=== PATIENT | male | born 1960 | race Caucasian/White ===

== ENCOUNTER → 2017-10-21 | Outpatient (CLI) | payer BC ==
--- NOTE | 2017-10-21 10:57 | Diagnostic Imaging Report ---
History: Neck and right shoulder pain Comparison studies: None Technique: Sagittal T1, T2 and IR, axial T2 and axial gradient echo Intravenous contrast: None Findings: Alignment: Straightening of the cervical spine lordosis No scoliosis. Thickening of the posteriorly to the ligament from C6 superior endplate through C5 inferior endplate Cervicomedullary junction: No abnormalities. Patent foramen magnum. Soft tissues: No T2 hyperintense inflammatory changes. Spinal cord: Increased T2 signal at the L4-5 with associated severe canal stenosis Vertebrae: Edema signal at C4-5. No fractures, infection or neoplasm. Degenerative changes: C2-C3: Small central disc osteophyte complex with patent canal and foramina C3-C4: Asymmetric left disc osteophyte complex bilateral uncinate process hypertrophy and left facet hypertrophy results in moderate canal stenosis and moderate left foraminal narrowing C4-C5: Fluid intensity signal within the intervertebral disc and endplate edema. Posterior diffuse disc osteophyte complex, bilateral uncinate process hypertrophy, ligamentum flavum thickening and facet hypertrophy results in severe canal stenosis and severe bilateral foraminal narrowing C5-C6: Diffuse disc osteophyte complex and left uncinate process hypertrophy results in mild canal stenosis and mild left foraminal narrowing C6-C7: Patent canal and foramina C7-T1: Patent canal and foramina IMPRESSION: 1. Severe degenerative canal stenosis C4-C5 with signal intensity changes at the cervical spinal cord, this could be related to a combination of myelomalacia with superimposed compressive myelitis. 2. Endplate edema with mild fluid intensity signal intensity signal at C4-C5 intervertebral space, this could be related to Modic type I changes, early discitis cannot be entirely ruled out. 3. Moderate degenerative canal stenosis and moderate left foraminal narrowing at C4-C5. Other degenerative changes as described above. Signed by: DR Washington Wall M.D. on 10/21/2017 11:40 AM
--- NOTE | 2017-10-21 13:46 | Diagnostic Imaging Report ---
TECHNIQUE: Magnetic resonance imaging of the right SHOULDER was performed WITHOUT injected contrast. COMPARISON: None available. HISTORY: shoulder pain FINDINGS: MUSCLES AND TENDONS: Rotator Cuff: Tendons: Low-grade partial thickness articular sided tearing of the supraspinatus and infraspinatus tendon for example coronal image 14 Muscles: No focal muscle atrophy. Biceps Tendon: The long head of the biceps tendon is intact and within the intertubercular groove. GLENOHUMERAL JOINT: Glenoid Labrum: No displaced tear. Articular Cartilage: No focal defect. AC JOINT AND ACROMION: Mild hypertrophic degenerative changes of the acromioclavicular joint. The acromion is unremarkable. BONE: No focal or infiltrative bone marrow replacing abnormality. No acute fracture. SOFT TISSUES: Otherwise, the soft tissues appear unremarkable. IMPRESSION: Supraspinatus and infraspinatus low-grade partial thickness articular sided tearing. No full-thickness tear, retraction, or atrophy. Signed by: Dr. Jarret Packer M.D. on 10/21/2017 1:42 PM
== END ==
LOC: MRI 07:18
PROVIDERS: ATTEND Family Medicine
DX: M25.511 Pain in right shoulder (principal); M54.12 Radiculopathy, cervical region
CPT/HCPCS: 72141

== ENCOUNTER 2017-10-29 08:06 | Observation (INO) | payer BC ==
[2017-10-28 12:56] LABS: BASOPHILS # (AUTO) 0.1 (0.0-0.1); BASOPHILS % 0.8 % (0.0-1.0); EOSINOPHILS # (AUTO) 0.1 (0.0-0.4); EOSINOPHILS % 1.3 % (0.0-6.0); HEMATOCRIT 47.2 % (38.2-49.6); HEMOGLOBIN 16.1 g/dL (14.0-18.0); LYMPHOCYTES % 21.6 % (18.0-39.1); MEAN CORPUSCULAR HGB CONC 34.1 g/dL (31-35); MEAN CORPUSCULAR VOLUME 90.8 fL (81-99); MONOCYTES # (AUTO) 0.7 (0.2-0.8); MONOCYTES % 7.5 % (4.4-11.3); NEUTROPHILS # (AUTO) 6.2 (2.1-6.9); NEUTROPHILS % 67.9 % (38.7-80.0); PLATELET COUNT 182 x10e3/uL (140-360); RED CELL DISTRIBUTION WIDTH 13.3 % (11.7-14.4)
[2017-10-28 13:09] LABS: INR 1.02; PROTHROMBIN TIME 12.6 seconds (11.9-14.5)
[2017-10-28 13:10] LABS: PARTIAL THROMBOPLASTIN TIME 27.1 seconds (23.8-35.5)
[2017-10-28 13:14] LABS: ANION GAP 18.3 mmol/L (8-16); BLOOD UREA NITROGEN 20 mg/dL (7-26); BUN/CREATININE RATIO 27 (6-25); CALCIUM 10.3 mg/dL (8.4-10.2); CARBON DIOXIDE 24 mmol/L (22-29); CHLORIDE 106 mmol/L (98-107); CREATININE, SERUM 0.73 mg/dL (0.72-1.25); EST GLOMERULAR FILTRATION RATE > 60 ML/MIN (60-); GLUCOSE 117 mg/dL (74-118); POTASSIUM 4.3 mmol/L (3.5-5.1); SODIUM 144 mmol/L (136-145)
--- NOTE | 2017-10-28 14:34 | Diagnostic Imaging Report ---
PROCEDURE: Frontal and lateral views of the chest. COMPARISON: None. INDICATIONS: Pre operative chest x-ray for c-spine surgery FINDINGS: Lines/tubes: None. Lungs: The lungs are well inflated and clear. There is no evidence of pneumonia or pulmonary edema. Pleura: There is no pleural effusion or pneumothorax. Heart and mediastinum: The heart and the mediastinum are normal. Bones: No acute bony abnormality. Degenerative changes of the thoracic spine. IMPRESSION: No acute radiographic abnormality. Dictated by: Young Roldan M.D. on 10/28/2017 at 14:35 Electronically approved by: Young Roldan M.D. on 10/28/2017 at 14:35
[2017-10-29] VITALS (7 sets, daily range): BP systolic 140–150; BP diastolic 68–80
[~2017-10-29] VITALS: Ht 165.1 cm; Wt 93.0 kg
[~2017-10-29 08:06] MED LIST: BACITRACIN 50,000 UNIT VIAL ONE; BUPIVACAINE 0.5%/EPI 30 ML SDV INJ ONE; CEFAZOLIN SOD 1 GM VIAL ONE; CRESTOR10 MG PO; GELATIN SPONGE SZ 100 ONE; IBUPROFEN400 MG PO; JANUMET XR 1001 EACH PO; JARDIANCE PO; METFORMIN HCL500 M2 PO; THROMBIN FOR SOLN 5,000 UNIT VIAL ONE
--- OUTSIDE RECORDS SUMMARY | 2017-10-29 08:08 | XMS REPORT | Clinical Summary ---
Author Author [facility] Address Unknown Phone Unavailable Care Team Providers Care Trawl Net Maker Name Role Phone Ksenia Vaughan MD PCP Allergies No Known Allergies Current Medications Prescription Sig. Disp. Refills Start End Date Status Date chlorhexidine (PERIDEX) RINSE MOUTH DIRECTED 3 10/10/19 Active 0.12 % solution 16 aspirin (ECOTRIN) 81 MG Take 81 mg by mouth Active enteric coated tablet daily. Active Problems Not on file Family History Medical History Relation Name Comments Pancreatic cancer Brother Emphysema Father Asthma Mother Diabetes Mother Relation Name Status Comments Brother Brother Alive Father Mother Alive Social History Tobacco Use Types Packs/Day Years Used Date Current Every Day Smoker 2 Tobacco Cessation: Ready to Quit: Yes Alcohol Use Drinks/Week oz/Week Comments Yes 14 Shots of 8.4 liquor Sex Assigned at Date Recorded Not on file Last Filed Vital Signs Not on file Plan of Treatment Health Maintenance Due Date Last Done Comments COLONOSCOPY 2011 SHINGRIX VACCINE (#1) 2011 INFLUENZA VACCINE 02/03/2018 06/15/2014 Results Not on fileafter 10/28/2016 Insurance Payer Benefit Subscriber ID Type Phone Address Plan / Group CIGNA CIGNA PPO xxxxxxxxxxx PPO
--- OUTSIDE RECORDS SUMMARY | 2017-10-29 08:08 | XMS REPORT ---
Author Author [facility] Address Unknown Phone Unavailable Care Team Providers Care Pediatric Cns Name Role Phone GREER KEENAN Unavailable Unavailable AQUILINO SINGH Unavailable Unavailable Problems This patient has no known problems. Allergies, Adverse Reactions, Alerts This patient has no known allergies or adverse reactions. Medications This patient has no known medications. Results Test Description Test Time Test Comments Text Results Atomic Results Result Comments CHEST 2 VIEWS [place] [address] Patient Name: SAYRA FERRER MR #: [id number] : 1960 Age/Sex: 57/M Req #: [id number] Adm Physician: Ordered by: GREER KEENAN MD Report #: [id number] Location: OR Room/Bed: Procedure: [id number] DX/CHEST 2 VIEWS Exam Date: Exam Time: REPORT STATUS: Signed PROCEDURE: Frontal and lateral views of the chest. COMPARISON: None. INDICATIONS: Pre operative chest x-ray for c- spine surgery FINDINGS: Lines/tubes: None. Lungs: The lungs are well inflated and clear. There is no evidence of pneumonia or pulmonary edema. Pleura: There is no pleural effusion or pneumothorax. Heart and mediastinum: The heart and the mediastinum are normal. Bones: No acute bony abnormality. Degenerative changes of the thoracic spine. IMPRESSION: No acute radiographic abnormality. Dictated by: Anshu Colon M.D. on 10/28/2017 at 14:35 Electronically approved by: Anshu Colon M.D. on 10/28/2017 at 14:35 Dictated By: ANSHU COLON MD 34 Transcribed By: NICKIE on 10/28/171434 COPY TO: GREER KEENAN MD MRI SPINE CERVICAL WO [place] [address] Patient Name: SAYRA FERRER MR #: [id number] : 1960 Age/Sex: 57/M Req #: [id number] Adm Physician: Ordered by: AQUILINO SINGH DO Report #: [id number] Location: MRI Room/Bed: Procedure: [id number] MRI/MRI SPINE CERVICAL WO Exam Date: Exam Time : REPORT STATUS: Signed History: Neck and right shoulder pain Comparison studies: None Technique: Sagittal T1, T2 and IR, axial T2 and axial gradient echo Intravenous contrast: None Findings: Alignment: Straightening of the cervical spine lordosis No scoliosis. Thickening of the posteriorly to the ligament from C6 superior endplate through C5 inferior endplate Cervicomedullary junction: No abnormalities. Patent foramen magnum. Soft tissues: No T2 hyperintense inflammatory changes. Spinal cord: Increased T2 signal at the L4-5 with associated severe canal stenosis Vertebrae: Edema signal at C4-5. No fractures, infection or neoplasm. Degenerative changes: C2-C3: Small central disc osteophyte complex with patent canal and foramina C3-C4: Asymmetric left disc osteophyte complex bilateral uncinate process hypertrophy and left facet hypertrophy results in moderate canal stenosis and moderate left foraminal narrowing C4-C5: Fluid intensity signal within the intervertebral disc and endplate edema. Posterior diffuse disc osteophyte complex, bilateral uncinate process hypertrophy, ligamentum flavum thickening and facet hypertrophy results in severe canal stenosis and severe bilateral foraminal narrowing C5-C6: Diffuse disc osteophyte complex and left uncinate process hypertrophy results in mild canal stenosis and mild left foraminal narrowing C6-C7: Patent canal and foramina C7-T1: Patent canal and foramina IMPRESSION: 1. Severe degenerative canal stenosis C4-C5 with signal intensity changes at the cervical spinal cord, this could be related to a combination of myelomalacia with superimposed compressive myelitis. 2. Endplate edema with mild fluid intensity signal intensity signal at C4-C5 intervertebral space, this could be related to Modic type I changes, early discitis cannot be entirely ruled out. 3. Moderate degenerative canal stenosis and moderate left foraminal narrowing at C4-C5. Other degenerative changes as described above. Signed by: DR Washington Wall M.D. on 10/21/2017 11:40 AM Dictated By: WASHINGTON TATE MD 1140 Transcribed By : SHILPI on 10/21/17 1140 COPY TO: AQUILINO SINGH DO MRI SHOULDER RIGHT WO [place] [address] Patient Name: SAYRA FERRER MR #: [id number] : 1960 Age/Sex: 57/M Req #: [id number] Adm Physician: Ordered by: AQUILINO SINGH DO Report #: [id number] Location: MRI Room/Bed: Procedure: [id number] MRI/MRI SHOULDER RIGHT WO Exam Date: Exam Time : REPORT STATUS: Signed TECHNIQUE: Magnetic resonance imaging of the right SHOULDER was performed WITHOUT injected contrast. COMPARISON: None available. HISTORY: shoulder pain FINDINGS: MUSCLES AND TENDONS: Rotator Cuff: Tendons: Low-grade partial thickness articular sided tearing of the supraspinatus and infraspinatus tendon for example coronal image 14 Muscles: No focal muscle atrophy. Biceps Tendon: The long head of the biceps tendon is intact and within the intertubercular groove. GLENOHUMERAL JOINT: Glenoid Labrum: No displaced tear. Articular Cartilage: No focal defect. AC JOINT AND ACROMION: Mild hypertrophic degenerative changes of the acromioclavicular joint. The acromion is unremarkable. BONE: No focal or infiltrative bone marrow replacing abnormality. No acute fracture. SOFT TISSUES: Otherwise, the soft tissues appear unremarkable. IMPRESSION: Supraspinatus and infraspinatus low- grade partial thickness articular sided tearing. No full-thickness tear, retraction, or atrophy. Signed by: Dr. Emeka Aldridge M.D. on 10/21/2017 1: 42 PM Dictated By: EMEKA ALDRIDGE MD 1342 Transcribed By: SHILPI on 10/21/17 1342 COPY TO: AQUILINO SINGH DO
[2017-10-29] MEDS ORDERED: CEPACOL SORE THROAT LOZENGES PO PRN (11:30)
[2017-10-29] MEDS ORDERED: ZOLPIDEM TARTRATE 5 MG TAB PO PRN (11:30)
[2017-10-29] MEDS ORDERED: ONDANSETRON HCL INJ 2 MG/ML VIAL IV PRN (11:30)
[2017-10-29] MEDS ORDERED: MAGNESIUM/ALUMINUM/SIMETHICONE 30 ML UDC PO PRN (11:30)
[2017-10-29] MEDS ORDERED: MORPHINE SULFATE 5 MG/ML VIAL IM PRN (11:30)
[2017-10-29] MEDS: LACTATED RINGER'S 1,000 ML IV SCH ×2 (11:30→19:04)
[2017-10-29] MEDS ORDERED: PROMETHAZINE HCL (IM) 25 MG/ML VIAL IM PRN (11:30)
[2017-10-29] MEDS ORDERED: HYDROMORPHONE 2MG/ML INJ IV PRN (11:30)
[2017-10-29] MEDS ORDERED: ACETAMINOPHEN 325 MG TAB PO PRN (11:30)
[2017-10-29] MEDS ORDERED: CARISOPRODOL 350 MG TAB PO PRN (11:30)
[2017-10-29] MEDS ORDERED: MORPHINE SULFATE 2 MG/ML SYR ONE (12:02)
[2017-10-29] MEDS ORDERED: FENTANYL CITRATE/PF 100MCG/2 ML INJ ONE ×2 (12:15→17:34)
--- OUTSIDE RECORDS SUMMARY | 2017-10-29 13:06 | XMS REPORT | Clinical Summary ---
Author Author [facility] Address Unknown Phone Unavailable Care Team Providers Care Diamond Expert Name Role Phone Ksenia Vaughan MD PCP [...]
[2017-10-29] MEDS: OXYCODONE/ACETAMINOPHEN 5-325 1 EACH TABLET PO PRN ×2 (13:55→19:24)
[2017-10-29] MEDS ORDERED: CEFAZOLIN SOD 1 GM/NS 50ML 50 ML IV SCH (14:00)
--- NOTE | 2017-10-29 14:01 | Operative Report ---
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 PROCEDURES 1. C4-5 anterior cervical diskectomy, microsurgical osteophyte resection and allograft fusion, 82769. 2. Preparation of [employer] cortical cancellous allograft, 51153. 3. C4-5 anterior cervical plate and screw fixation with Synthes ZPN plate, 93553. ANESTHESIA: General. INDICATIONS: The patient is a man who presents with C4-5 chronic disk herniation and spondylosis with myelopathy and myelomalacia. He was taken to the operating room for C4-5 anterior cervical decompression and fusion. PROCEDURE: After induction of general anesthesia, the patient was placed on the operating table in supine position. The right side of the neck was prepped and draped in sterile fashion. The fluoroscopic C-arm was positioned in cross-table lateral orientation. A transverse incision was created on the right side of the neck superimposed on the C4-5 disk as determined by fluoroscopy. The platysma was divided in line with the incision. A subplatysmal dissection was carried out. An avascular plane of dissection was developed medial to the sternocleidomastoid muscle and was followed medial to the carotid sheath to the anterior border of the cervical spine. The deep cervical fascia was opened. The esophagus was retracted to the left. The attachments of the longus coli muscles to the anterolateral aspects of the vertebral bodies of C4 and C5 were divided. The anterior longitudinal ligament was resected. [place] posts were inserted into C4 and C5. The [place] distractor was used to distract the disk space. The anterior annulus of the disk was incised a #11 blade. The contents of the disk were thoroughly evacuated with angled curets and pituitary rongeurs. The posterior osteophytes were meticulously drilled with a 2-mm cutting bur on a high-speed drill until they were completely removed. The posterior annulus of the disk, chronically herniated disk material and the posterior longitudinal ligament were resected layer by layer until the dura was fully exposed and decompressed. The medial aspects of the uncinate processes were resected bilaterally to further expose and decompress the origins of the corresponding nerve roots. After satisfactory decompression had been achieved, the endplates were prepared for fusion. The disk space was sized and found to be 8 mm in height. A piece of MTF cortical cancellous allograft measuring 8 mm was selected and prepared in saline and loaded onto a Synthes ZPN plate. The construct was then inserted into the disk space under distraction and fluoroscopic guidance and tamped in place until the anterior margin of the plate was flush with anterior margin of the vertebral bodies. The plate was then screwed to the endplates of C4 and C5 with 2 pairs of 14-mm screws. All screws were locked. An excellent construct was obtained. The wound was copiously irrigated with Bacitracin solution. Meticulous hemostasis was secured. Retractor was removed. The platysma was closed with 3-0 Vicryl sutures. The skin was closed with 4-0 Monocryl sutures in a subcuticular fashion. Steri-Strips and dressing were applied. The patient was awakened, extubated and taken to the postanesthesia care unit in stable condition. No intraoperative complications were encountered. Estimated blood loss was 10 mL. Job#: [id number]
[2017-10-29] MEDS ORDERED: METFORMIN HCL 500 MG TAB CR PO SCH (17:00)
[2017-10-29] MEDS ORDERED: ONDANSETRON HCL INJ 2 MG/ML VIAL ONE (17:19)
[2017-10-29] MEDS ORDERED: DEXAMETHASONE SOD PHOS INJ 4 MG/ML VIAL ONE (17:19)
[2017-10-29] MEDS ORDERED: ACETAMINOPHEN 1000 MG/100 ML IV ONE (17:19)
[2017-10-29] MEDS ORDERED: EPHEDRINE SULFATE INJ 50 MG/10 ML SYR ONE (17:19)
[2017-10-29] MEDS ORDERED: ROCURONIUM BROMIDE 10 MG/ML 5ML VIAL ONE (17:19)
[2017-10-29] MEDS ORDERED: LIDOCAINE HCL 2% LOCAL INJ 5 ML SDV VIAL INJ ONE (17:19)
[2017-10-29] MEDS ORDERED: PROPOFOL IV EMULSION 10 MG/ML 20 ML VIAL ONE (17:19)
[2017-10-29] MEDS ORDERED: LIDOCAINE HCL 2% JELLY 5 ML TUBE ONE (17:19)
[2017-10-29] MEDS ORDERED: SEVOFLURANE INHAL SOLN 250 ML PEN BTL ONE (17:19)
[2017-10-29] MEDS ORDERED: MIDAZOLAM HCL 2 MG/2 ML VIAL ONE (17:34)
[2017-10-29] MEDS: CEFAZOLIN SOD 1 GM VIAL IV SCH (17:34)
[2017-10-29] MEDS: SIMVASTATIN 20 MG TAB PO SCH ×2 (20:10→20:36)
[2017-10-30 00:17] VITALS: BP 159/81
[2017-10-30] MEDS: CEFAZOLIN SOD 1 GM VIAL IV SCH (01:02)
[2017-10-30 04:00] VITALS: BP 154/83
[2017-10-30] MEDS: OXYCODONE/ACETAMINOPHEN 5-325 1 EACH TABLET PO PRN (04:15)
--- NOTE | 2017-10-30 07:11 | Diagnostic Imaging Report ---
C-SPINE 2 VIEWS AP LATERAL HISTORY: Cervical spinal fusion COMPARISON: None FINDINGS: Bones: No displaced fracture. Osseous alignment is within normal limits. Patient is status post anterior fusion of C4-C5 with intervertebral disc spacer and fixation screws Joints: The joint spaces are well-maintained. Soft tissues: Minimal soft tissue emphysema in the precervical/retropharyngeal space. IMPRESSION: Postsurgical changes of cervical spine consistent with anterior fusion of C4-5. Signed by: Dr. Cholo Becerra M.D. on 10/30/2017 7:07 AM
[2017-10-30 07:56] VITALS: BP 141/78
[2017-10-30] MEDS: SITAGLIPTIN 100 MG TAB PO SCH ×2 (07:58→08:19)
[2017-10-30] MEDS: METFORMIN HCL 500 MG TAB CR PO SCH ×2 (07:58→08:19)
[2017-10-30] MEDS ORDERED: SIMVASTATIN 40 MG TAB PO SCH (09:00)
[2017-10-30] MEDS ORDERED: JARDIANCE 25 MG PO SCH (09:00)
[2017-10-30] MEDS ORDERED: NON-FORMULARY MEDICATION ([Jardiance] 25 MG) PO SCH (09:00)
[2017-10-30] MEDS ORDERED: METFORMIN HCL 500 MG TAB CR PO SCH (12:00)
== END 2017-10-30 10:12 | disposition home or self-care (01) ==
LOC: OR 08:06 → IMCU 13:03
PROVIDERS: ADMIT Neurological Surgery; ATTEND Neurological Surgery
DX: M50.021 Cervical disc disorder at C4-C5 level with myelopathy (principal); E11.9 Type 2 diabetes mellitus without complications; F17.210 Nicotine dependence, cigarettes, uncomplicated
CPT/HCPCS: 20931; 22551; 22845; 36415 ×2; 71046; 72040; 77003; 80048; 82948; 85025; 85610; 85730; 86850; 86900; 88304; 93005; 96376; C1713 ×2; C9359; G0378 ×2; J0690 ×2; J1100; J2001 ×2; J2250; J2270; J2405

== ENCOUNTER → 2017-11-26 | Outpatient (CLI) | payer BC ==
[~2017-11-26] MED LIST changes: -BACITRACIN 50,000 UNIT VIAL ONE; -BUPIVACAINE 0.5%/EPI 30 ML SDV INJ ONE; -CEFAZOLIN SOD 1 GM VIAL ONE; -GELATIN SPONGE SZ 100 ONE; -THROMBIN FOR SOLN 5,000 UNIT VIAL ONE
--- NOTE | 2017-11-26 10:56 | Diagnostic Imaging Report ---
PROCEDURE: C-SPINE AP AND LAT WITH FLEX AND EXT COMPARISON: Patients [facility], DX, C-SPINE 2 VIEWS AP \T\ LATERAL, 10/30/2017, 5:55. INDICATIONS: 1 month post op follow up FINDINGS: C1 through upper aspect of C7 are visualized on the lateral view. The patient is status post anterior fusion of C4-C5 with metallic disc spacer and transfixing screws which are intact and in adequate alignment. Flexion and extension views demonstrate no change in alignment. Spurring at C6-C7 again noted. The prevertebral soft tissues are not swollen. CONCLUSION: Status post anterior disc spacer with oblique transfixing screws. Intact hardware with adequate alignment. Tavo Hidalgo D.O. Dictated by: Tavo Hidalgo D.O. on 11/26/2017 at 10:59 Electronically approved by: Tavo Hidalgo D.O. on 11/26/2017 at 10:59
== END ==
LOC: RAD 09:10
PROVIDERS: ATTEND Neurological Surgery
CPT/HCPCS: 72050